=== PATIENT | female | born 1990 | race Caucasian/White ===

== ENCOUNTER 2016-09-29 09:33 | Emergency (ER) | payer OTHER ==
[~2016-09-29] VITALS: Ht 167.6 cm; Wt 60.0 kg
[~2016-09-29 09:33] MED LIST: Z.0.NO CURRENT MEDS
[2016-09-29 09:40] VITALS: BP 115/71; PULSE 92; RESP 16; TEMP 98; O2SAT 100
[2016-09-29] MEDS ORDERED: SODIUM CHLOR 0.9% 1000 ML INJ 1,000 ML IV ONE (09:45)
--- NOTE | 2016-09-29 09:49 | PD ---
HPI Chief Complaint: Alcohol/Drug Intoxication Time Seen by Provider: 09:43 Travel History International Travel<30 days: No Contact w/Intl Traveler<30days: No Traveled to known affect area: No History of Present Illness HPI 26-year-old female was brought in by EMS for drug overdose. Patient states that she was shooting up heroin. Patient was found unresponsive this morning by her boyfriend. EMS was called. Patient was given Narcan 2 mg IV with good results. Patient's awake and alert upon arrival. Patient denies any complaint now. Patient denies any headache. Patient denies any chest pain or shortness of breath. Patient denies abdominal pain. Patient denies any focal weakness or numbness of extremity. Patient denies any alcohol abuse. Patient denies any past medical problem. Patient denies any routine medications. Patient denies any chance of being . PFSH Past Medical History Developmental Delay: No Diminished Hearing: No ?: Not Menopausal: No : 1 Miscarriage: 1 Social History Alcohol Use: Yes (states social use, nothing) Tobacco Use: Yes (1 ppd cigarettes) Substance Use: Yes (uses marijuana, xanax; last time today, IV heroin) Allergies-Medications (Allergen,Severity, Reaction): Coded Allergies: No Known Allergies (Verified , 10/20/11) Reported Meds & Prescriptions Reported Meds & Active Scripts Active No Active Prescriptions or Reported Medications Review of Systems General / Constitutional: No: Fever Eyes: No: Visual changes HENT: No: Headaches Cardiovascular: No: Chest Pain or Discomfort Respiratory: No: Shortness of Breath Gastrointestinal: No: Abdominal Pain Genitourinary: No: Dysuria Musculoskeletal: No: Pain Skin: No Rash Neurologic: No: Weakness Psychiatric: No: Depression Endocrine: No: Polydipsia Hematologic/Lymphatic: No: Easy Bruising Physical Exam Narrative GENERAL: Well-nourished, well-developed patient. SKIN: Focused skin assessment warm/dry. HEAD: Normocephalic. EYES: No scleral icterus. No injection or drainage. NECK: Supple, trachea midline. No JVD or lymphadenopathy. CARDIOVASCULAR: Regular rate and rhythm without murmurs, gallops, or rubs. RESPIRATORY: Breath sounds equal bilaterally. No accessory muscle use. GASTROINTESTINAL: Abdomen soft, non-tender, nondistended. MUSCULOSKELETAL: No cyanosis, or edema. BACK: Nontender without obvious deformity. No CVA tenderness. Neurologic exam normal. Data Data Last Documented VS Vital Signs Date Time Temp Pulse Resp B/P Pulse Ox O2 Delivery O2 Flow Rate FiO2 09/29/16 09:55 100 Room Air 09/29/16 09:44 92 16 09/29/16 09:40 98.0 115/71 Orders Complete Blood Count With Diff (09/29/16 09:44) Basic Metabolic Panel (Bmp) (09/29/16 09:44) Urinalysis - C+S If Indicated (09/29/16 09:44) Iv Access Insert/Monitor (09/29/16 09:44) Ecg Monitoring (09/29/16 09:44) Oximetry (09/29/16 09:44) Ed Urine Pregnancytest Poc (09/29/16 09:44) Sodium Chlor 0.9% 1000 Ml Inj (Ns 1000 M (09/29/16 09:45) Ondansetron Inj (Zofran Inj) (09/29/16 10:00) Labs Laboratory Tests Test 09/29/16 09:45 White Blood Count 5.1 TH/MM3 Red Blood Count 4.35 MIL/MM3 Hemoglobin 11.3 GM/DL Hematocrit 33.9 % Mean Corpuscular Volume 78.0 FL Mean Corpuscular Hemoglobin 26.0 PG Mean Corpuscular Hemoglobin 33.3 % Concent Red Cell Distribution Width 16.9 % Platelet Count 230 TH/MM3 Mean Platelet Volume 8.8 FL Neutrophils (%) (Auto) 54.9 % Lymphocytes (%) (Auto) 35.2 % Monocytes (%) (Auto) 8.2 % Eosinophils (%) (Auto) 1.0 % Basophils (%) (Auto) 0.7 % Neutrophils # (Auto) 2.8 TH/MM3 Lymphocytes # (Auto) 1.8 TH/MM3 Monocytes # (Auto) 0.4 TH/MM3 Eosinophils # (Auto) 0.1 TH/MM3 Basophils # (Auto) 0.0 TH/MM3 CBC Comment DIFF FINAL Differential Comment Sodium Level 138 MEQ/L Potassium Level 3.8 MEQ/L Chloride Level 104 MEQ/L Carbon Dioxide Level 26.2 MEQ/L Anion Gap 8 MEQ/L Blood Urea Nitrogen 8 MG/DL Creatinine 0.81 MG/DL Estimat Glomerular Filtration 86 ML/MIN Rate Random Glucose 166 MG/DL Calcium Level 8.5 MG/DL MDM Medical Decision Making Medical Screen Exam Complete: Yes Emergency Medical Condition: Yes Interpretation(s) 11:06 AM. CBC within normal limit. BMP within normal limit. Differential Diagnosis Differential diagnosis including drug overdose, electrolyte abnormality, dehydration. Narrative Course 26-year-old female with history IV drug abuse, found unresponsive this morning. Patient responded to Narcan IV. Patient admitted to heroin abuse. Normal saline solution 1 L IV bolus now. Diagnosis Primary Impression: Drug overdose Qualified Code: T50.904A - Drug overdose, undetermined intent, initial encounter Patient Instructions: General Instructions Additional Instructions: Advised [facility]. Med/Other Pt SpecificInfo: No Meds Exist/No RX given Scripts No Active Prescriptions or Reported Meds Disposition: [address] LAW ENFORCEMNT Condition: Stable Tuan Wolff MD September 29, 2016 09:49
[2016-09-29 09:55] VITALS: O2SAT 100
[2016-09-29] MEDS ORDERED: ONDANSETRON HCL 4 MG/2 ML VIAL IV PUSH ONE (10:00)
[2016-09-29 10:06] LABS: AUTOMATED NEUTROPHIL # 2.8 TH/MM3 (1.8-7.7); BASOPHIL % 0.7 % (0.0-2.0); EOSINOPHIL # 0.1 TH/MM3 (0-0.4); HEMATOCRIT 33.9 % (35.0-46.0); HEMO FLAGS DIFF FINAL; LYMPH % 35.2 % (9.0-44.0); LYMPHOCYTE # 1.8 TH/MM3 (1.0-4.8); MEAN CORPUSCULAR HGB CONC 33.3 % (32.0-36.0); MONO % 8.2 % (0.0-8.0); NEUT % 54.9 % (16.0-70.0); PLATELET COUNT 230 TH/MM3 (150-450); RED BLOOD COUNT 4.35 MIL/MM3 (4.00-5.30); RED CELL DISTRIBUTION WIDTH 16.9 % (11.6-17.2); WHITE BLOOD COUNT 5.1 TH/MM3 (4.0-11.0)
[2016-09-29 10:26] LABS: BICARBONATE 26.2 MEQ/L (21.0-32.0); POTASSIUM 3.8 MEQ/L (3.5-5.1)
== END 2016-09-29 12:43 ==
LOC: NEPE 09:33
DX: T50.904A Poisoning by unspecified drugs, medicaments and biological substances, undetermined, initial encounter (principal)
CPT/HCPCS: 80048; 84703; 85025; 96361; 96374; 99284; J2405; J7030

== ENCOUNTER 2017-03-30 20:25 | Emergency (ER) | payer SELFPAY ==
[~2017-03-30] VITALS: Ht 170.2 cm; Wt 58.0 kg
[2017-03-30 20:28] VITALS: BP 127/80; PULSE 117; RESP 16; TEMP 97.9; O2SAT 97
--- NOTE | 2017-03-30 21:05 | PD ---
HPI Chief Complaint: Skin Problem Time Seen by Provider: 20:59 Travel History International Travel<30 days: No Contact w/Intl Traveler<30days: No Traveled to known affect area: No History of Present Illness HPI Patient comes in complaining of abscess of her right forearm that began 2 days. Patient describes pain as painful throbbing/pressure-like sensation that radiates proximally and distally. Pain is worse to palpation. Patient denies doing anything for this. Patient states this began after partying with friends using IV crack. Patient denies any fevers, nausea, vomiting, or . Reports tetanus shot is up-to-date. [facility] Past Medical History Medical History: Denies Significant Hx Developmental Delay: No Diminished Hearing: No Immunizations Current: Yes ?: Not LMP: 03/07/17 Menopausal: No : 1 Miscarriage: 1 Past Surgical History Surgical History: No Previous Surgery Social History Alcohol Use: Yes (states social use, nothing) Tobacco Use: Yes (1 ppd cigarettes) Substance Use: Yes (uses marijuana, xanax; last time today, IV heroin) Allergies-Medications (Allergen,Severity, Reaction): Coded Allergies: No Known Allergies (Verified Adverse Reaction, Unknown, 03/30/17) Reported Meds & Prescriptions Reported Meds & Active Scripts Active Keflex (Cephalexin) 500 Mg Cap 500 Mg PO Q8H Clindamycin (Clindamycin HCl) 150 Mg Cap 2 Cap PO Q6H 10 Days Review of Systems Except as stated in HPI: all other systems reviewed are Neg Physical Exam Narrative GENERAL: Well-developed, well nourished, in no acute distress, and non-ill appearing. SKIN: Tender fluctuant abscess noted over right forearm. Approximately 2 cm in greatest diameter. There is no streaking, drainage, or crepitus. HEAD: Atraumatic. Normocephalic. EYES: Pupils equal and round. EOMI. No scleral icterus. No injection or drainage. ENT: No nasal bleeding or discharge. Mucous membranes pink and moist. NECK: Trachea midline. Supple. No nuclear rigidity. CARDIOVASCULAR: Regular rate and rhythm. No murmur appreciated. RESPIRATORY: No accessory muscle use. No respiratory distress. MUSCULOSKELETAL: No obvious deformities. No clubbing. No cyanosis. No edema. Full range of motion. NEUROLOGICAL: Awake and alert. No obvious cranial nerve deficits. Motor grossly within normal limits. Normal speech. PSYCHIATRIC: Appropriate mood and affect; insight and judgment normal. Data Data Last Documented VS Vital Signs Date Time Temp Pulse Resp B/P (MAP) Pulse Ox O2 Delivery O2 Flow Rate FiO2 03/30/17 22:07 03/30/17 20:28 97.9 117 16 97 Room Air Orders Orders Wound Culture And Gram Stain (03/30/17 21:03) Clindamycin (Cleocin) (03/30/17 21:15) Cephalexin (Keflex) (03/30/17 21:15) Ed Discharge Order (03/30/17 22:03) [facility] Medical Decision Making Medical Screen Exam Complete: Yes Emergency Medical Condition: Yes Differential Diagnosis Abscess, cellulitis, folliculitis, sepsis, gangrene, other Narrative Course The patient has no evidence of significant cellulitis. There is no evidence of necrotizing fasciitis/ [place] at this time. The patient will be discharged on antibiotics. The patient was given signs and symptoms warnings for worsening infection, such as spreading of redness, increasing pain, and/or swelling, associated heat, or fever or feels worse, and instructed to return immediately if these signs or symptoms worsen. The patient is to return in 2 days for recheck. Sooner if worsens or as needed. The patient agrees with plan. Patient in no obvious distress upon re-evaluation. Patient was asked if they wanted to speak to my attending, which the patient did not wish to do at this time. Any questions/concerns in reference to patient diagnosis/condition discussed and clarified prior to patient's discharge. Reinforced sheer importance of close follow up with patient's primary physician or primary care clinic. Instructed patient to return to ED immediately, if symptoms return/ worsen. Patient showed understanding of above instructions. Further instructions and recommendations were detailed in discharge paperwork. Patient ambulated without difficulty out of ED at discharge. Procedures Procedure Narrative INCISION AND DRAINAGE OF ABSCESS: Verbal consent was obtained. The area was prepped. A subcutaneous wheal of 1% Xylocaine with epi with a total number 2 mL was used to anesthetize the area. The area was properly anesthetized. A number 11 scalpel was used to make a 1-cm incision across the area of the abscess. The abscess was drained and irrigated with normal saline. Quarter inch iodoform packing was placed in the wound. Sterile dressing applied by nurse. Patient tolerated procedure well. Patient advised to return here in 2 days to have packing removed and wound rechecked. Patient verbalized understanding. Diagnosis Primary Impression: Abscess Patient Instructions: Abscess (ED), Abscess Incision and Drainage (DC), General Instructions Additional Instructions: Follow-up with your primary care physician or return here in 2 days for recheck. Take all medication as prescribed. Apply warm compresses to affected area to facilitate drainage. Stop doing drugs. Return to the emergency department if symptoms get worse. Med/Other Pt SpecificInfo: Prescription(s) given Scripts Cephalexin (Keflex) 500 Mg Cap 500 MG PO Q8H for Infection, #30 CAP 0 Refills Prov: Jen Rogel DO 03/30/17 Clindamycin (Clindamycin) 150 Mg Cap 2 CAP PO Q6H for Infection for 10 Days, #80 CAP 0 Refills Prov: Jen Rogel DO 03/30/17 Disposition: 01 DISCHARGE HOME Condition: Stable Jeancarlos Story Mar 30, 2017 21:05
[2017-03-30] MEDS ORDERED: CEPHALEXIN MONOHYDRATE 500 MG CAP PO ONE (21:15)
[2017-03-30] MEDS ORDERED: CLINDAMYCIN 150 MG CAP PO ONE (21:15)
[2017-03-30] MEDS ORDERED: CEPH-460 PO (22:01)
[2017-03-30] MEDS ORDERED: CLIN150C14 PO (22:01)
== END 2017-03-30 22:11 | disposition home or self-care (01) ==
LOC: NEPD 20:25
DX: L02.413 Cutaneous abscess of right upper limb (principal); B95.0 Streptococcus, group A, as the cause of diseases classified elsewhere; F17.210 Nicotine dependence, cigarettes, uncomplicated
CPT/HCPCS: 10061; 87070; 87205

== ENCOUNTER 2017-05-03 20:41 | Inpatient (IN) | payer SELFPAY ==
[~2017-05-03] VITALS: Ht 167.6 cm; Wt 54.7 kg
[~2017-05-03 20:41] MED LIST changes: +CEPH-460 PO; +CLIN150C14 PO; -Z.0.NO CURRENT MEDS
[2017-05-03 20:43] VITALS: BP 148/65; PULSE 120; RESP 20; TEMP 100.8; O2SAT 99
--- NOTE | 2017-05-03 22:14 | PD ---
HPI Chief Complaint: Edema Time Seen by Provider: 22:03 Travel History International Travel<30 days: No Contact w/Intl Traveler<30days: No Traveled to known affect area: No History of Present Illness HPI The patient is a 26-year-old female, IV drug abuser, who complains of right arm swelling for 3 days. She has had a fever at home. She has a pain level of 10 over 10. The pain is sharp and burning. PFSH Past Medical History Medical History: Denies Significant Hx Developmental Delay: No Diminished Hearing: No Immunizations Current: Yes Influenza Vaccination: No ?: Unknown LMP: 2 MONTHS Menopausal: No : 1 Miscarriage: 1 Past Surgical History Surgical History: No Previous Surgery Social History Alcohol Use: Yes (states social use, nothing) Tobacco Use: Yes (1 ppd cigarettes) Substance Use: Yes (uses marijuana, xanax; last time today, IV heroin) Allergies-Medications (Allergen,Severity, Reaction): Coded Allergies: No Known Allergies (Verified Allergy, Unknown, 05/04/17) Reported Meds & Prescriptions Reported Meds & Active Scripts Active Keflex (Cephalexin) 500 Mg Cap 500 Mg PO Q8H Clindamycin (Clindamycin HCl) 150 Mg Cap 2 Cap PO Q6H 10 Days Review of Systems Except as stated in HPI: all other systems reviewed are Neg Physical Exam Narrative GENERAL: The patient is alert, oriented 3 in moderate to severe distress with her right arm pain. Her vital signs show temperature 100.8 initially but she was mouth breathing and heart rate of 120 and blood pressure 148/65. Repeat temperature was 101. SKIN: Focused skin assessment warm/dry. There is a cellulitis on the right arm , most concentrated at the dorsal aspect of the right forearm. Questionable fluctuance is present on the dorsal aspect of the right forearm. Multiple needle tracks are present both fresh and old on both arms. HEAD: Atraumatic. Normocephalic. EYES: Pupils equal and round. No scleral icterus. No injection or drainage. ENT: No nasal bleeding or discharge. Mucous membranes pink and moist. NECK: Trachea midline. No JVD. CARDIOVASCULAR: Regular rate and rhythm. No murmur appreciated. She does have a sinus tachycardia. RESPIRATORY: No accessory muscle use. Clear to auscultation. Breath sounds equal bilaterally. GASTROINTESTINAL: Abdomen soft, non-tender, nondistended. Hepatic and splenic margins not palpable. MUSCULOSKELETAL: No obvious deformities. No clubbing. No cyanosis. No edema. NEUROLOGICAL: Awake and alert. No obvious cranial nerve deficits. Motor grossly within normal limits. Normal speech. PSYCHIATRIC: Appropriate mood and affect; insight and judgment normal. Data Data Last Documented VS Vital Signs Date Time Temp Pulse Resp B/P (MAP) Pulse Ox O2 Delivery O2 Flow Rate FiO2 05/03/17 23:52 99.2 05/03/17 23:34 18 05/03/17 22:48 98 Room Air 05/03/17 22:30 87 Orders Orders Sepsis Workup Initiated (05/03/17 ) Electrocardiogram (05/03/17 22:03) Complete Blood Count With Diff (05/03/17 22:03) Comprehensive Metabolic Panel (05/03/17 22:03) Beta Hcg (Quant/Titer) (05/03/17 22:03) Lactic Acid Sepsis Protocol (05/03/17 22:03) Urinalysis - C+S If Indicated (05/03/17 22:03) Blood Culture (05/03/17 22:03) Wound Culture And Gram Stain (05/03/17 22:03) Chest, Pa & Lat (05/03/17 22:03) Blood Glucose (05/03/17 22:03) Ecg Monitoring (05/03/17 22:03) Iv Access Insert/Monitor (05/03/17 22:03) Oximetry (05/03/17 22:03) Oxygen Administration (05/03/17 22:03) Ketorolac Inj (Toradol Inj) (05/03/17 22:15) Sodium Chlor 0.9% 1000 Ml Inj (Ns 1000 M (05/03/17 22:15) Drug Screen, Random Urine (05/03/17 22:21) Urine Culture (05/03/17 22:15) Vancomycin Inj (Vancomycin Inj) (05/03/17 23:15) Admit Order (Ed Use Only) (05/03/17 23:51) Vital Signs (Adult) Q4H (05/03/17 23:53) Activity Oob With Assistance (05/03/17 23:53) Web Content & Social Media Manager / Telemetry .CONTINUOUS (05/03/17 23:53) Diet Heart Healthy (05/04/17 Breakfast) Sodium Chloride 0.9% Flush (Ns Flush) (05/04/17 00:00) Sodium Chloride 0.9% Flush (Ns Flush) (05/04/17 09:00) Case Management Consult (05/03/17 23:53) Naloxone Inj (Narcan Inj) (05/04/17 00:00) Vancomycin Consult Pharmacy (Vancomycin (05/04/17 00:00) Piperacil-Tazo 4.5 Gm Premix (Zosyn 4.5 (05/04/17 00:00) Labs Laboratory Tests Test 05/03/17 22:15 White Blood Count 14.9 TH/MM3 Red Blood Count 4.68 MIL/MM3 Hemoglobin 12.5 GM/DL Hematocrit 37.2 % Mean Corpuscular Volume 79.5 FL Mean Corpuscular Hemoglobin 26.8 PG Mean Corpuscular Hemoglobin Concent 33.7 % Red Cell Distribution Width 14.9 % Platelet Count 310 TH/MM3 Mean Platelet Volume 9.6 FL Neutrophils (%) (Auto) 84.1 % Lymphocytes (%) (Auto) 10.3 % Monocytes (%) (Auto) 4.3 % Eosinophils (%) (Auto) 0.1 % Basophils (%) (Auto) 1.2 % Neutrophils # (Auto) 12.6 TH/MM3 Lymphocytes # (Auto) 1.5 TH/MM3 Monocytes # (Auto) 0.6 TH/MM3 Eosinophils # (Auto) 0.0 TH/MM3 Basophils # (Auto) 0.2 TH/MM3 CBC Comment DIFF FINAL Differential Comment Urine Color YELLOW Urine Turbidity CLEAR Urine pH 7.0 Urine Specific [place] 1.006 Urine Protein NEG mg/dL Urine Glucose (UA) NEG mg/dL Urine Ketones NEG mg/dL Urine Occult Blood NEG Urine Nitrite POS Urine Bilirubin NEG Urine Leukocyte Esterase SMALL Urine RBC 0-3 /hpf Urine WBC 6-8 /hpf Urine WBC Clumps FEW Urine Squamous Epithelial Cells 0-5 /hpf Urine Bacteria MANY /hpf Microscopic Urinalysis Comment CULTURE INDICATED Blood Urea Nitrogen 8 MG/DL Creatinine 0.77 MG/DL Random Glucose 93 MG/DL Total Protein 8.7 GM/DL Albumin 3.5 GM/DL Calcium Level 8.9 MG/DL Alkaline Phosphatase 80 U/L Aspartate Amino Transf (AST/SGOT) 25 U/L Alanine Aminotransferase (ALT/SGPT) 25 U/L Total Bilirubin 0.7 MG/DL Sodium Level 130 MEQ/L Potassium Level 3.7 MEQ/L Chloride Level 95 MEQ/L Carbon Dioxide Level 27.9 MEQ/L Anion Gap 7 MEQ/L Estimat Glomerular Filtration Rate 91 ML/MIN Lactic Acid Level 0.9 mmol/L Human Chorionic Gonadotropin, Quant LESS THAN 1 MIU/ML Urine Opiates Screen POS Urine Barbiturates Screen NEG Urine Amphetamines Screen NEG Urine Benzodiazepines Screen NEG Urine Cocaine Screen POS Urine Cannabinoids Screen NEG MDM Medical Decision Making Medical Screen Exam Complete: Yes Emergency Medical Condition: Yes Medical Record Reviewed: Yes Interpretation(s) The CBC shows a white count of 14,900 with 84% neutrophils. The complete metabolic profile shows a sodium of 1:30, total protein of 8.7 but is otherwise unremarkable. The beta-hCG is less than 1. The urine toxicology is positive for opiates and cocaine but negative for all other substances tested. The urine shows positive nitrite, small leukocyte Estrace, 6-8 white cells and many bacteria and culture is indicated. The lactic acid is normal. The chest x-ray is normal. Differential Diagnosis Sepsis, cellulitis forearm, urinary tract infection, abscess forearm, electrolyte disorder, anemia Narrative Course The patient is to criteria for sepsis. She will benefit from IV antibiotics. The source is likely the cellulitis of the forearm. Procedures Procedure Narrative Under sterile technique and following a Betadine application, a field block was done on the right dorsal forearm. The area of questionable fluctuance was incised but only a tiny amount of pus was recovered. A culture was taken of this area. Physician Communication Physician Communication I discussed the patient with Dr. Cota, the patient will be admitted to her. Diagnosis Primary Impression: Abscess of right forearm Additional Impression: Cellulitis of right arm Admitting Information Admitting Physician Requests: Admit Kendall Barclay MD May 03, 2017 22:14
[2017-05-03] MEDS ORDERED: KETOROLAC TROMETHAMINE 60 MG/2 ML (IM) VIAL IVP ONE (22:15)
[2017-05-03 22:30] VITALS: BP 112/58; PULSE 87; RESP 20; O2SAT 99
[2017-05-03] MEDS: SODIUM CHLOR 0.9% 1000 ML INJ 1,000 ML IV SCH ×2 (22:34→22:35)
[2017-05-03 22:46] LABS: AUTOMATED NEUTROPHIL # 12.6 TH/MM3 (1.8-7.7); BASOPHIL # 0.2 TH/MM3 (0-0.2); BASOPHIL % 1.2 % (0.0-2.0); BLOOD, URINE NEG (NEG); EOSINOPHIL % 0.1 % (0.0-4.0); GLUCOSE,URINE NEG (NEG); HEMATOCRIT 37.2 % (35.0-46.0); KETONE, URINE NEG (NEG); LYMPH % 10.3 % (9.0-44.0); LYMPHOCYTE # 1.5 TH/MM3 (1.0-4.8); MEAN CELL VOLUME 79.5 FL (80.0-100.0); MEAN CORPUSCULAR HEMOGLOBIN 26.8 PG (27.0-34.0); MEAN CORPUSCULAR HGB CONC 33.7 % (32.0-36.0); MONO % 4.3 % (0.0-8.0); NEUT % 84.1 % (16.0-70.0); NITRITE,URINE POS (NEG); PLATELET COUNT 310 TH/MM3 (150-450); RED BLOOD COUNT 4.68 MIL/MM3 (4.00-5.30); RED CELL DISTRIBUTION WIDTH 14.9 % (11.6-17.2); WHITE BLOOD COUNT 14.9 TH/MM3 (4.0-11.0)
[2017-05-03 22:48] VITALS: RESP 20; TEMP 101; O2SAT 98
[2017-05-03 22:51] LABS: URINE COLOR YELLOW (YELLW/STRAW)
[2017-05-03 22:53] LABS: CHLORIDE 95 MEQ/L (98-107); POTASSIUM 3.7 MEQ/L (3.5-5.1); SODIUM (NA) 130 MEQ/L (136-145)
[2017-05-03 22:54] LABS: BACTERIA, URINE MANY /hpf; RBC, URINE 0-3 /hpf (0-3); SQUAMOUS EPITHELIAL CELL URINE 0-5 /hpf (0-5)
[2017-05-03 22:55] LABS: COMMENT (UR) CULTURE INDICATED; CULTURE IF INDICATED CULTURE INDICATED; HEMO FLAGS DIFF FINAL
[2017-05-03 22:57] LABS: ANION GAP 7 MEQ/L (5-15); BICARBONATE 27.9 MEQ/L (21.0-32.0); BLOOD UREA NITROGEN 8 MG/DL (7-18)
--- NOTE | 2017-05-03 22:58 | RADRPT ---
EXAM DATE/TIME: 05/03/2017 22:46 [place] COMPARISON: No previous studies available for comparison. INDICATIONS : Fever. Right arm swelling. MEDICAL HISTORY : None. SURGICAL HISTORY : None. ENCOUNTER: Initial ACUITY: 3 days PAIN SCORE: 0/10 LOCATION: Bilateral chest FINDINGS: PA and lateral views of the chest demonstrate the lungs to be symmetrically aerated without evidence of mass, infiltrate or effusion. The cardiomediastinal contours are unremarkable. Osseous structure s are intact. Bilateral nipple rings are present. CONCLUSION: No acute disease. Matt Worley MD on May 03, 2017 at 22:57 Board Certified Radiologist. This report was verified electronically.
[2017-05-03 23:00] LABS: ALT (GPT) 25 U/L (10-53); AST (GOT) 25 U/L (15-37); GLOMERULAR FILTRATION RATE 91 ML/MIN (>89)
[2017-05-03 23:02] LABS: TOTAL BILIRUBIN ADULT 0.7 MG/DL (0.2-1.0)
[2017-05-03 23:03] LABS: ALKALINE PHOSPHATASE 80 U/L (45-117)
[2017-05-03 23:05] LABS: BETA HCG QUANT LESS THAN 1 MIU/ML (0-5)
[2017-05-03] MEDS ORDERED: VANCOMYCIN INJ 1,000 MG in SODIUM CHLOR 0.9% 250 ML INJ 250 ML IV ONE (23:15)
[2017-05-03 23:52] VITALS: TEMP 99.2
[2017-05-04] VITALS (7 sets, daily range): BP systolic 87–110; BP diastolic 53–68; PULSE 86–107; RESP 17–24; TEMP 99–101.6; O2SAT 95–100
[2017-05-04] MEDS ORDERED: SODIUM CHLORIDE 0.9% FLUSH 10 ML FLUSH IV FLUSH PRN
[2017-05-04] MEDS ORDERED: Vancomycin Consult Pharmacy 1 EA OTHER SCH
[2017-05-04] MEDS ORDERED: NALOXONE HCL 0.4 MG/ML AMP IV PUSH PRN
[2017-05-04] MEDS: PIPERACIL-TAZO 4.5 GM PREMIX 100 ML IV SCH ×4 (00:58→18:40)
[2017-05-04] MEDS ORDERED: ONDANSETRON HCL 4 MG/2 ML VIAL IV PUSH PRN (08:30)
[2017-05-04 08:41] LABS: AUTOMATED NEUTROPHIL # 12.4 TH/MM3 (1.8-7.7); BASOPHIL % 0.1 % (0.0-2.0); EOSINOPHIL % 0.2 % (0.0-4.0); HEMATOCRIT 31.2 % (35.0-46.0); LYMPH % 7.1 % (9.0-44.0); MEAN CELL VOLUME 81.4 FL (80.0-100.0); MEAN CORPUSCULAR HEMOGLOBIN 26.6 PG (27.0-34.0); MEAN CORPUSCULAR HGB CONC 32.7 % (32.0-36.0); MONO % 5.6 % (0.0-8.0); PLATELET COUNT 247 TH/MM3 (150-450); RED BLOOD COUNT 3.83 MIL/MM3 (4.00-5.30); RED CELL DISTRIBUTION WIDTH 14.9 % (11.6-17.2); WHITE BLOOD COUNT 14.2 TH/MM3 (4.0-11.0)
[2017-05-04 08:52] LABS: HEMO FLAGS DIFF FINAL
[2017-05-04] MEDS: SODIUM CHLORIDE 0.9% FLUSH 10 ML FLUSH IV FLUSH SCH ×2 (09:27→19:54)
[2017-05-04] MEDS: NS + KCL 20 MEQ INJ 1,000 ML IV SCH ×2 (09:28→17:15)
[2017-05-04] MEDS: ACETAMINOPHEN 325 MG TAB PO PRN ×2 (09:29→20:02)
[2017-05-04] MEDS ORDERED: SODIUM CHLOR 0.9% 1000 ML INJ 1,000 ML IV ONE (10:15)
[2017-05-04 10:32] LABS: BICARBONATE 24.2 MEQ/L (21.0-32.0); POTASSIUM 3.7 MEQ/L (3.5-5.1)
--- NOTE | 2017-05-04 10:49 | HHI.HP ---
[facility] Primary Care Physician No Primary Care Physician Admission Diagnosis sepsis, cellulitis right arm, IV drug abuse, cocaine abuse Diagnoses: Chief Complaint: arm pain Travel History International Travel<30 Days: No Contact w/Intl Traveler <30 Da: No Traveled to Known Affected Are: No Sepsis Criteria SIRS Criteria (2 or more): Temp > 100.9 or < 96.8, WBC > 24698, < 4000 or > 10 % bands Sepsis Criteria (SIRS+source): Infect source susp/known History of Present Illness 26-year-old white female being admitted for sepsis secondary to cellulitis and possible bacteremia. Patient was in her usual state of health until about 3 days ago when she began experiencing gradual onset of right arm pain. She says nothing in particular made it better or worse. Pain was sharp and she eventually prompted to come to the emergency room; was 10/10 at it's worst. She had a superficial abscess lanced in the ER. She was noted to have an elevated white count. Patient admits to using IV drug use and says that she probably last shot in that particular arm sometime within the last month. She said she has been using IV drugs on and off for the past few years. She says she lives "nowhere" whereas RN relayed to me she's anxious to leave since she's being evicted and needs to get her belongings. Chest x-ray which I independently reviewed is unremarkable for any acute findings. Review of Systems Except as stated in HPI: all other systems reviewed are Neg Past Family Social History Past Medical History IV drug use Past Surgical History None per patient Allergies: Coded Allergies: No Known Allergies (Verified Allergy, Unknown, 05/04/17) Family History None per patient Social History IV drug use including cocaine and opiates for years per patient Physical Exam Vital Signs Vital Signs Date Time Temp Pulse Resp B/P (MAP) Pulse Ox O2 Delivery O2 Flow Rate FiO2 05/04/17 10:18 18 05/04/17 08:00 101.6 107 24 100/54 (69) 95 05/04/17 01:38 99.1 90 17 92/53 (66) 98 05/04/17 01:32 86 05/04/17 00:27 99.2 99 18 102/59 (73) 97 05/03/17 23:52 99.2 05/03/17 23:34 18 05/03/17 22:48 101.0 20 98 Room Air 05/03/17 22:30 87 20 112/58 (76) 99 Room Air 05/03/17 21:05 16 99 Room Air 05/03/17 20:43 100.8 120 20 148/65 (92) 99 Physical Exam VS: Febrile to 101.6 GENERAL: Lying in bed, middle-aged thin white female, 1 year go to sleep SKIN: Warm and dry. Has multiple lesions suggestive of scratching over through her face, no obvious track ellis noted between the toes or on the arms. Has a incision on the right medial forearm that is about 1-2 inches long that is not currently draining. EYES: Pupils are slightly dilated but reactive bilaterally. No injection or drainage. ENT: No nasal bleeding or discharge. Mucous membranes pink and moist. CARDIOVASCULAR: Regular rate and rhythm. 3/6 ejection murmur RESPIRATORY: No accessory muscle use. Clear to auscultation. Breath sounds equal bilaterally. GASTROINTESTINAL: Abdomen soft, non-tender, nondistended. Hepatic and splenic margins not palpable. Extremities: Right extremity appears to be edematous from mid shaft humerus down to the patient's distal forearm. She has tenderness to palpation namely at the level of the incision done mid shaft down through the forearm circumferentially, denies pain elsewhere. Pain is not worsened with passive wrist flexion or extension, patient herself is not actively flexing or extending her arm due to not cooperating. MUSCULOSKELETAL: Extremities without clubbing, cyanosis, or edema. No obvious deformities. grossly intact ROM with 5/5 strength in lower extremities proximally, adequate strength and muscle bulk and tone in BL UEs NEUROLOGICAL: Awake and alert. No obvious cranial nerve deficits. No facial droop nor slurred speech noted. PSYCHIATRIC: Bitter mood and with corresponding affect. Laboratory Laboratory Tests Test 05/03/17 22:15 05/04/17 08:15 White Blood Count 14.9 14.2 Red Blood Count 4.68 3.83 Hemoglobin 12.5 10.2 Hematocrit 37.2 31.2 Mean Corpuscular Volume 79.5 81.4 Mean Corpuscular Hemoglobin 26.8 26.6 Mean Corpuscular Hemoglobin Concent 33.7 32.7 Red Cell Distribution Width 14.9 14.9 Platelet Count 310 247 Mean Platelet Volume 9.6 8.6 Neutrophils (%) (Auto) 84.1 87.0 Lymphocytes (%) (Auto) 10.3 7.1 Monocytes (%) (Auto) 4.3 5.6 Eosinophils (%) (Auto) 0.1 0.2 Basophils (%) (Auto) 1.2 0.1 Neutrophils # (Auto) 12.6 12.4 Lymphocytes # (Auto) 1.5 1.0 Monocytes # (Auto) 0.6 0.8 Eosinophils # (Auto) 0.0 0.0 Basophils # (Auto) 0.2 0.0 CBC Comment DIFF FINAL DIFF FINAL Differential Comment Urine Color YELLOW Urine Turbidity CLEAR Urine pH 7.0 Urine Specific [place] 1.006 Urine Protein NEG Urine Glucose (UA) NEG Urine Ketones NEG Urine Occult Blood NEG Urine Nitrite POS Urine Bilirubin NEG Urine Leukocyte Esterase SMALL Urine RBC 0-3 Urine WBC 6-8 Urine WBC Clumps FEW Urine Squamous Epithelial Cells 0-5 Urine Bacteria MANY Microscopic Urinalysis Comment CULTURE INDICATED Blood Urea Nitrogen 8 8 Creatinine 0.77 0.77 Random Glucose 93 99 Total Protein 8.7 Albumin 3.5 Calcium Level 8.9 7.8 Alkaline Phosphatase 80 Aspartate Amino Transf (AST/SGOT) 25 Alanine Aminotransferase (ALT/SGPT) 25 Total Bilirubin 0.7 Sodium Level 130 137 Potassium Level 3.7 3.7 Chloride Level 95 105 Carbon Dioxide Level 27.9 24.2 Anion Gap 7 8 Estimat Glomerular Filtration Rate 91 91 Lactic Acid Level 0.9 Human Chorionic Gonadotropin, Quant LESS THAN 1 Urine Opiates Screen POS Urine Barbiturates Screen NEG Urine Amphetamines Screen NEG Urine Benzodiazepines Screen NEG Urine Cocaine Screen POS Urine Cannabinoids Screen NEG Date/Time Source Procedure Growth Status 05/03/17 22:33 Blood Peripheral Aerobic Blood Culture Pending Received 05/03/17 22:33 Blood Peripheral Anaerobic Blood Culture Pending Received 05/03/17 22:15 Urine Clean Catch Urine Culture Pending Received 05/03/17 23:27 Wound Arm Gram Stain Pending Received 05/03/17 23:27 Wound Arm Wound Culture Pending Received Result Diagram: 05/04/1715 05/04/1715 Caprini VTE Risk Assessment Caprini VTE Risk Assessment: No/Low Risk (score <= 1) Caprini Risk Assessment Model Point Value = 1 Point Value = 2 Point Value = 3 Point Value = 5 Age 41-60 Minor surgery BMI > 25 kg/m2 Swollen legs Varicose veins or History of unexplained or recurrent spontaneous Oral contraceptives or hormone replacement Sepsis (< 1 month) Serious lung disease, including pneumonia (< 1 month) Abnormal pulmonary function Acute myocardial infarction Congestive heart failure (< 1 month) History of inflammatory bowel disease Medical patient at bed rest Age 61-74 Arthroscopic surgery Major open surgery (> 45 min) Laparoscopic surgery (> 45 min) Malignancy Confined to bed (> 72 hours) Immobilizing plaster cast Central venous access Age >= 75 History of VTE Family history of VTE Factor V Leiden Prothrombin [id number] Lupus anticoagulant Anticardiolipin antibodies Elevated serum homocysteine Heparin-induced thrombocytopenia Other congenital or acquired thrombophilia Stroke (< 1 month) Elective arthroplasty Hip, pelvis, or leg fracture Acute spinal cord injury (< 1 month) Prophylaxis Regimen Total Risk Factor Score Risk Level Prophylaxis Regimen 0-1 Low Early ambulation 2 Moderate Order ONE of the following: *Sequential Compression Device (SCD) *Heparin 5000 units SQ BID 3-4 Higher Order ONE of the following medications: *Heparin 5000 units SQ TID *Enoxaparin/Lovenox 40 mg SQ daily (WT < 150 kg, CrCl > 30 mL/min) *Enoxaparin/Lovenox 30 mg SQ daily (WT < 150 kg, CrCl > 10-29 mL/min) *Enoxaparin/Lovenox 30 mg SQ BID (WT < 150 kg, CrCl > 30 mL/min) AND/OR *Sequential Compression Device (SCD) 5 or more Highest Order ONE of the following medications: *Heparin 5000 units SQ TID (Preferred with Epidurals) *Enoxaparin/Lovenox 40 mg SQ daily (WT < 150 kg, CrCl > 30 mL/min) *Enoxaparin/Lovenox 30 mg SQ daily (WT < 150 kg, CrCl > 10-29 mL/min) *Enoxaparin/Lovenox 30 mg SQ BID (WT < 150 kg, CrCl > 30 mL/min) AND *Sequential Compression Device (SCD) Assessment and Plan Assessment and Plan Sepsis 2/2 cellulitis and possible bacteremia/endocarditis - IV fluids, broad-spectrum antibiotics - Blood cultures pending, ordering lactic acid - Independently reviewed chest x-ray which shows no acute infiltrates Right arm edema - Cellulitis and/or possible septic emboli - Obtain stat ultrasound of extremity first and if negative will consider CTA arm and forearm with runoff to evaluate VASCULATURE patency and soft tissues Possible endocarditis given IV drug use history - Echocardiogram results pending - + for cocaine Physician Certification 2 Midnight Certification Type: Admission for Inpatient Services Order for Inpatient Services The services are ordered in accordance with Medicare regulations or non- Medicare payer requirements, as applicable. In the case of services not specified as inpatient-only, they are appropriately provided as inpatient services in accordance with the 2-midnight benchmark. Estimated LOS (days): 3 3 days is the estimated time the patient will need to remain in the hospital, assuming treatment plan goals are met and no additional complications. Post-Hospital Plan: Not yet determined Jese Mathis MD May 04, 2017 10:49
[2017-05-04] MEDS ORDERED: SODIUM CHLORID 0.9% 500 ML INJ 500 ML IV ONE (11:00)
--- NOTE | 2017-05-04 12:07 | RADRPT ---
EXAM DATE/TIME: 05/04/2017 11:22 [facility] COMPARISON: No previous studies available for comparison. INDICATIONS : Right arm swelling. MEDICAL HISTORY : IV drug user. Tobacco use. SURGICAL HISTORY : None. ENCOUNTER: Initial ACUITY: 3 days PAIN SCORE: 8/10 LOCATION: Right arm. FINDINGS: There is spontaneous flow documented in the brachial, basilic, cephalic, axillary, and subclavian vei ns. The vessels are compressible and augmentation response is documented. No filling defects are se en. The flow is phasic with respiration. Direction of flow in the jugular vein is caudal. CONCLUSION: No DVT in right arm. David Lin MD on May 04, 2017 at 12:05 Board Certified Radiologist. This report was verified electronically.
[2017-05-04] MEDS: VANCOMYCIN 1,000 MG/NS 250 ML IV SCH ×2 (12:30)
--- NOTE | 2017-05-04 12:30 | ECHRPT ---
Indication: endocarditis CONCLUSIONS The left ventricular systolic function is hyperdynamic with an estimated ejection fraction in the ra nge of 65- 70%. Wall thickness is normal. Normal left ventricular size. No regional wall motion abnormalities are present. Trace mitral valve regurgitation. There is trace tricuspid valve regurgitation. The estimated pulmonary arterial pressure is 31.5 mmHg. BP: / HR: Rhythm: MEASUREMENTS (Male / Female) Normal Values Technical Quality:Good 2D ECHO LV Diastolic Diameter PLAX 3.4 cm 4.2 - 5.9 / 3.9 - 5.3 cm LV Systolic Diameter PLAX 2.3 cm IVS Diastolic Thickness 0.9 cm 0.6 - 1.0 / 0.6 - 0.9 cm LVPW Diastolic Thickness 1.0 cm 0.6 - 1.0 / 0.6 - 0.9 cm LV Relative Wall Thickness 0.5 RV Internal Dim ED PLAX 2.5 cm M-MODE Aortic Root Diameter MM 2.8 cm LA Systolic Diameter MM 2.5 cm LA Ao Ratio MM 0.9 AV Cusp Separation MM 1.8 cm DOPPLER Mitral E Point Velocity 88.8 cm/s Mitral A Point Velocity 65.6 cm/s Mitral E to A Ratio 1.4 LV E' Lateral Velocity 6.5 cm/s Mitral E to LV E' Lateral Ratio 13.6 LV E' Septal Velocity 11.0 cm/s Mitral E to LV E' Septal Ratio 8.1 TR Peak Velocity 232.0 cm/s TR Peak Gradient 21.5 mmHg Right Atrial Pressure 10.0 mmHg Pulmonary Artery Systolic Pressu 31.5 mmHg Right Ventricular Systolic Press 31.5 mmHg FINDINGS LEFT VENTRICLE The left ventricular systolic function is hyperdynamic with an estimated ejection fraction in the ra nge of 65- 70%. Wall thickness is normal. Normal left ventricular size. No regional wall motion abnormalities are present. RIGHT VENTRICLE Normal right ventricular size and systolic function. LEFT ATRIUM The left atrial size is normal. RIGHT ATRIUM The right atrial size is normal. ATRIAL SEPTUM Normal atrial septal thickness without atrial level shunting by limited color doppler interrogation. AORTA The aortic root and proximal ascending aorta are normal in size on limited imaging. MITRAL VALVE Structurally normal mitral valve. Trace mitral valve regurgitation. AORTIC VALVE Trileaflet aortic valve. No aortic valve stenosis or regurgitation. TRICUSPID VALVE Structurally normal tricuspid valve. There is trace tricuspid valve regurgitation. The estimated pulmonary arterial pressure is 31.5 mmHg. PULMONARY VALVE No pulmonary valve regurgitation or stenosis. VESSELS The inferior vena cava is normal in size. PERICARDIUM No pericardial effusion. Ian Simpson MD (Electronically Signed) Final Date:04 May 2017 12:30
[2017-05-04] MEDS ORDERED: IOHEXOL 350 MG/ML 10 ML VIAL (for RAD DIAG) IVCONTRAST ONE (13:39)
--- NOTE | 2017-05-04 14:32 | RADRPT ---
EXAM DATE/TIME: 05/04/2017 12:48 [facility] COMPARISON: No previous studies available for comparison. INDICATIONS : Right forearm swelling and pain. IV CONTRAST: 90 cc Omnipaque 350 (iohexol) IV RADIATION DOSE: 2.41 CTDIvol (mGy) MEDICAL HISTORY : None SURGICAL HISTORY : None. ENCOUNTER: Initial ACUITY: 2 days PAIN SCALE: 10/10 LOCATION: Right forearm TECHNIQUE: Volumetric scanning was performed using a multirow detector CT scanner. Using automated exposure cont rol and adjustment of the mA and/or kV according to patient size, radiation dose was kept as low as r easonably achievable to obtain optimal diagnostic quality images. The data was post processed with a variety of visualization algorithms including full-volume maximum intensity projection, multiplanar sliding thin-slab reformation, curved-planar reformation, and surface-rendering techniques. Using au tomated exposure control and adjustment of the mA and/or kV according to patient size, radiation dose was kept as low as reasonably achievable to obtain optimal diagnostic quality images. DICOM format image data is available electronically for review and comparison. FINDINGS: There is normal origin of vessels from the arch. Examination of the upper extremity demonstrates no e vidence of inflow stenosis. The brachial artery is patent. The radial and ulnar arteries are unremark able. There is two vessel flow to the hand. There is edema and cellulitis at the level of the elbow w ith findings of possible abscess along the medial aspect of the ulna measuring 2.4 x 5.1 CM. MRI is r ecommended for further evaluation if clinically indicated. CONCLUSION: 1. Negative CT angiography of the upper extremity. 2. Cellulitis with possible abscess in the forearm as above. MRI is recommended for further evaluatio n if clinically indicated. Jcarlos Lauren MD on May 04, 2017 at 14:24 Board Certified Radiologist. This report was verified electronically.
--- NOTE | 2017-05-04 15:51 | EKG ---
Date Performed: 05/03/2017 Time Performed: 22:12:31 PTAGE: 26 years EKG: Sinus rhythm NORMAL ECG NO PREVIOUS TRACING DOCTOR: Flako Reilly Interpretating Date/Time 05/04/2017 15:50:02
[2017-05-04] MEDS: KETOROLAC TROMETHAMINE 30 MG/ML (IVP) VIAL IV PUSH PRN (20:01)
[2017-05-05] VITALS (7 sets, daily range): BP systolic 98–156; BP diastolic 64–83; PULSE 70–77; RESP 15–20; TEMP 96.4–98.2; O2SAT 97–100
[2017-05-05] MEDS: VANCOMYCIN 1,000 MG/NS 250 ML IV SCH ×4 (00:22→12:34)
[2017-05-05] MEDS: PIPERACIL-TAZO 4.5 GM PREMIX 100 ML IV SCH ×3 (00:24→11:27)
[2017-05-05] MEDS: KETOROLAC TROMETHAMINE 30 MG/ML (IVP) VIAL IV PUSH PRN (06:12)
[2017-05-05] MEDS: NS + KCL 20 MEQ INJ 1,000 ML IV SCH ×2 (09:26→13:15)
[2017-05-05] MEDS: SODIUM CHLORIDE 0.9% FLUSH 10 ML FLUSH IV FLUSH SCH (09:27)
--- NOTE | 2017-05-05 09:31 | RADRPT ---
EXAM DATE/TIME: 05/05/2017 08:51 [facility] COMPARISON: CTA UPPER EXTREMITY RIGHT W 3D RECON, May 04, 2017, 12:48. INDICATIONS : Right arm abscess. MEDICAL HISTORY : IV drug abuse. Tobacco use. SURGICAL HISTORY : None. ENCOUNTER: Initial ACUITY: 3 days PAIN SCORE: 8/10 LOCATION: Right arm. AREA EVALUATED: Right posterior mid medial forearm FINDINGS: Lerma scale and Doppler ultrasound imaging of the right forearm in the area of clinical interest docum ent subcutaneous edema and a subcutaneous hypoechoic avascular by convex structure measuring 5.1 x 1. 8 x 2.6 cm. It is located superficial to the ulna and located up to 2 cm in depth. CONCLUSION: Complex collection measuring up to 5.1 cm at the area of interest. Given the clinical history, this could represent an abscess. Given the complexity is unlikely to be a menable to complete aspiration with percutaneous drainage. Arnold Sethi MD on May 05, 2017 at 9:26 Board Certified Radiologist. This report was verified electronically.
[2017-05-05] MEDS ORDERED: PHARMACY ORDERED LAB ONE (11:45)
[2017-05-05] MEDS ORDERED: BUPIVACAINE/EPINEPHRINE 0.5% PF 30 ML VIAL ONE (14:15)
[2017-05-05] MEDS ORDERED: LIDOCAINE HCL 2% 50 ML VIAL ONE (14:15)
[2017-05-05] MEDS ORDERED: BUPIVACAINE HCL PF 0.5% 30 ML VIAL ONE (14:16)
[2017-05-05] MEDS ORDERED: NEOMYCIN/POLYMYXIN 1 ML G.U. IRRIGANT ONE ×2 (14:16→14:17)
[2017-05-05] MEDS ORDERED: MIDAZOLAM HCL 2 MG/2 ML VIAL ONE (15:10)
[2017-05-05] MEDS ORDERED: FAMOTIDINE 20 MG/2 ML VIAL ONE (15:13)
[2017-05-05] MEDS ORDERED: POVIDONE IODINE 5% (ANTISEPSIS KIT) 4 APPLICATIONS EACH NARE PRN (15:15)
[2017-05-05] MEDS ORDERED: SODIUM CHLORID 0.9% 500 ML IV PRN (15:15)
[2017-05-05] MEDS ORDERED: INSULIN HUMAN REGULAR 1,000 UNITS/10 ML VIAL SQ PRN (15:15)
[2017-05-05] MEDS ORDERED: LACTATED RINGER'S 1000 ML IV PRN (15:15)
[2017-05-05] MEDS ORDERED: METOPROLOL TARTRATE 25 MG TAB PO PRN (15:15)
[2017-05-05] MEDS ORDERED: CHLORHEXIDINE GLUCONATE 2 % 1 PACK (2 CLOTHS) TOPICAL PRN (15:15)
--- NOTE | 2017-05-05 15:26 | HHI.PR ---
Subjective Remarks Nursing reports that the patient's status is relatively unchanged since last night, no acute deteriorations. Patient herself says she feels no better than yesterday. Nursing reports that hand surgery is willing to perform surgery today given likelihood of abscess and right arm. Objective Vital Signs Date Time Temp Pulse Resp B/P (MAP) Pulse Ox O2 Delivery O2 Flow Rate FiO2 05/05/17 14:40 97.0 70 15 115/71 (86) 99 05/05/17 12:00 96.4 73 15 115/77 (90) 99 05/05/17 08:30 97.0 70 15 115/71 (86) 99 05/05/17 04:00 97.5 74 20 109/72 (84) 100 05/05/17 00:25 98/64 (75) 05/05/17 00:00 98.0 77 20 100 05/04/17 19:54 100.6 91 18 110/68 (82) 100 05/04/17 16:00 99.0 93 20 87/54 (65) 99 I/O 05/04/17 05/04/17 05/04/17 05/05/17 05/05/17 05/05/17 07:00 15:00 23:00 07:00 15:00 23:00 Intake Total 2432 ml 120 ml 750 ml 0 ml Balance 2432 ml 120 ml 750 ml 0 ml Intake Oral 120 ml 0 ml 0 ml IV Total 2432 ml 750 ml # Voids 2 2 1 2 Result Diagram: 05/04/17 0815 05/05/17 0540 Objective Remarks Right forearm still is edematous proximal to her incision site with possible crepitus palpated No murmur heard today, heart sounds regular rate and rhythm Patient in bed, sleeping but easily awoken A/P Assessment and Plan Sepsis 2/2 cellulitis and newly suspected abscess - Discussed images with Dr. Hart from radiology, recommended complete ultrasound of forearm for abscess - the read of which confirms a lesion suspicious for an abscess; wound culture from ER incision is growing group A Beta strep - And surgery has been consulted, plans to take to OR hopefully today - IV fluids, broad-spectrum antibiotics of vancomycin and Zosyn - Blood cultures fortunately have been negative, urine is growing Escherichia coli which is pansensitive Right arm edema -No emboli seen on Doppler ultrasound and CTA runoff - Likely secondary to abscess as above Possible endocarditis given IV drug use history - Echocardiogram is negative, adequate ejection fraction Jese Mathis MD May 05, 2017 15:26
[2017-05-05] MEDS ORDERED: diphenhydrAMINE HCL 50 MG/ML VIAL ONE (15:50)
--- NOTE | 2017-05-05 16:19 | PD.OP ---
Operative Report Preoperative Diagnosis: (1) Abscess of right forearm Postoperative Diagnosis: (1) Abscess of right forearm Procedure: incision and drainage right forearm abscess Anesthesia: general Surgeon: Rory Orantes Hull Sorter(s): edouard Operation and Findings: abscess cavity over the ulnar aspect of the midforearm with purulence and necrotic tissue right forearm Rory Orantes MD May 05, 2017 16:19
[2017-05-05] MEDS ORDERED: PROMETHAZINE INJ 25 MG/ML VIAL ONE (16:22)
[2017-05-05] MEDS ORDERED: MEPERIDINE HCL 50 MG/ML VIAL ONE (16:23)
[2017-05-05] MEDS ORDERED: HYDROmorphone HCL PF 2 MG/ML VIAL ONE ×2 (16:28→16:49)
[2017-05-05] MEDS ORDERED: MORPHINE SULFATE 4 MG/ML INJ ONE ×2 (16:49→17:09)
--- NOTE | 2017-05-05 19:42 | MB ---
cc: JUDY RAMIREZ MD DATE OF CONSULTATION: 05/05/2017. REASON FOR CONSULTATION: Right forearm abscess. HISTORY OF PRESENT ILLNESS: The patient is a 26-year-old right-hand dominant female who presented to the hospital with complaints of pain and swelling involving the right forearm about four to five days ago. The patient has history of IV drug abuse. The patient complains of worsening pain. She was seen in the emergency room and had incision and drainage. Hand surgery was consulted for her persistent symptoms. She complains of pain and swelling over the right forearm. Denies any tingling or numbness. Pain worse with range of motion of the finger. She also complains of fever and chills. The patient also gives history of an abscess drained from the right wrist region several years ago. PAST MEDICAL HISTORY: As noted. PAST SURGICAL HISTORY: Significant for incision and drainage of the right forearm / wrist abscess. PHYSICAL EXAMINATION: GENERAL: The patient is alert and oriented times three. Examination of the right upper extremity reveals diffuse swelling of the forearm. Incision noted over the ulnar aspect of the mid forearm measuring about 2 cm. Diffuse tenderness noted along the lateral aspect of the forearm. Fluctuation noted along the ulnar aspect of the mid forearm. The forearm compartment appears to be supple over the proximal aspect. She is able to make a full fist. Full extension of the fingers noted without any increasing pain. She has palpable radial pulses. She has intact sensation in both median and ulnar nerve distributions. A healed scar noted over the volar ulnar aspect of the wrist. LABORATORY DATA: White count was reviewed. She has a white count of 14.2 along with neutrophil shift of 87%. IMAGING STUDIES: CT scan of the right upper extremity shows a collection cavity measuring about 5 x 2 cm along the mid forearm along the ulnar aspect. ASSESSMENT: A 26 year old female with right forearm abscess. PLAN: 1. The plan will be to keep the patient NPO. 2. Take her emergently for incision and drainage of the abscess. The patient has been explained the risks and benefits of the procedure. Judy Ramirez MD SE/DUSTIN /4:24 PM /7:11 PM JUDITH
--- NOTE | 2017-05-06 12:24 | MP ---
cc: JUDY RAMIREZ MD DATE OF SURGERY: 05/05/2017. PREOPERATIVE DIAGNOSIS: Right forearm abscess. POSTOPERATIVE DIAGNOSIS: Right forearm abscess. OPERATIVE PROCEDURE PERFORMED: Incision and drainage right forearm abscess. SURGEON: Judy Ramirez M.D. ANESTHESIA: General. ESTIMATED BLOOD LOSS: 10 mL TOURNIQUET TIME: 12 minutes at 250 mmHg. SPECIMEN: Specimen was sent for culture and sensitivity. DISPOSITION: The patient was recovered sent to go stable condition. INDICATIONS FOR THE PROCEDURE: The patient is a 26-year-old right hand dominant female with history of IV drug abuse presenting with complaints of pain and swelling over the right forearm. The patient noticed pain and swelling over the right forearm about the four or five days ago. She presented to the emergency department and she had incision and drainage of the right forearm abscess. Because of the persistent symptoms, hand surgery was consulted. On examination she had fluctuation over the mid forearm on the ulnar aspect with an incision site. No purulent drainage noted. CT scan showed an abscess cavity in the mid forearm measuring about 5 x 2 cm. She had an elevated white count. Because of persistent pain and collection on the CT scan with the elevated white count, she was consented for incision and drainage of the right forearm abscess. The patient was explained the risks and benefits of the procedure. DESCRIPTION OF THE PROCEDURE IN DETAIL: The patient was brought to the operating room and under general anesthesia the right upper extremity was thoroughly prepped and draped. The incision site was marked corresponding to the incision made by the emergency room and this one was extended both proximally and distally measuring a total of about 5 cm. After limb elevation, the tourniquet was inflated to 250 mmHg. Incision was then made over the proposed incision site. Soft tissue dissection was carried out. On further exploration, there was evidence of a cavity of pus within the subcutaneous region with necrotic and purulent material within. The material was sent for culture and sensitivity. Purulent and necrotic material was expressed out. The cavity with broken by blunt dissection using fingers. The necrotic material was debrided. The forearm showed the tendon sheath to be just involved superficially on the surface which was debrided. A thorough was given using normal saline mixed with hydrogen peroxide initially and this was then followed by normal saline mixed with irrigant and about 2 liters of solution was used. The tourniquet was deflated. Total tourniquet time was 12 minutes. She had good distal circulation on release of tourniquet. Bleeding points were cauterized with bipolar cautery. Packing of the wound was carried out. The wound was then loosely approximated using 4-0 nylon in a horizontal mattress interrupted fashion. Bulky hand dressing was applied which was held in place by Sof-Rol and bias hand wrap. The patient was recovered and sent to the recovery room in stable condition. The plan will be to continue the IV antibiotics and change the packing tomorrow. Judy Ramirez MD SE/DUSTIN /4:19 PM /12:05 PM
== END 2017-05-05 18:05 | disposition left against medical advice (07) | DRG 872 ==
LOC: PHED 20:41 → PHEDA 23:53 → INTOOBSV 23:53 → PH3A 05-04 01:10 → OBSVTOIN 05-04 10:53
PROVIDERS: ADMIT Hospitalist; ATTEND Hospitalist
PROC: 0H9DXZZ Drainage of Right Lower Arm Skin, External Approach (ICD-10-PCS; principal; 2017-05-04)
PROC: 0H9DXZZ Drainage of Right Lower Arm Skin, External Approach (ICD-10-PCS; 2017-05-05)
DX: A40.0 Sepsis due to streptococcus, group A (principal); F13.10 Sedative, hypnotic or anxiolytic abuse, uncomplicated; L02.413 Cutaneous abscess of right upper limb; L03.113 Cellulitis of right upper limb; F17.210 Nicotine dependence, cigarettes, uncomplicated; F12.90 Cannabis use, unspecified, uncomplicated; F11.10 Opioid abuse, uncomplicated
CPT/HCPCS: 10060; 71020; 73206; 76999; 80048; 80053; 80202; 80307; 81001; 82565; 83605; 84702; 85025; 86403; 87015; 87040; 87070; 87077; 87086; 87102; 87116; 87186; 87205; 87206; 93005; 93306; 93971; 96361; 96374; 96375; J1170; J1200; J1885; J2175; J2250; J2270; J2543; J2550; J3370; J3480; J7030; J7040; J7050; Q9967